=== PATIENT | female | born 1965 | race Caucasian/White ===

== ENCOUNTER → 2017-06-29 15:50 | Outpatient (CLI) | payer BC, SELFPAY ==
--- NOTE | 2017-06-29 15:56 | US_ITS ---
US transvaginal HISTORY: Dysfunctional uterine bleeding, heavy uterine bleeding ITS.REASON: Heavy Bleeding ORDERING PHYSICIAN: Vel Cormier MD PATIENT AGE: 51 years COMPARISON: None FINDINGS: UTERUS: The uterus measures 9.8 x 5 x 5.9 cm. Combined endometrial thickness is 1.2 cm. There is a 1 cm fibroid along the anterior aspect of the body the uterus RIGHT OVARY: 2.4 x 2 cm containing a 1.4 cm and a 1 cm cyst LEFT OVARY: 3.5 x 1.7 cm containing a 1.8 cm cyst CUL-DE-SAC FLUID: No cul-de-sac fluid apparent OTHER FINDINGS: None IMPRESSION: 1. Mildly thickened endometrium at 1.2 cm. 2. Small uterine fibroid. 3. Small bilateral ovarian cysts
== END ==
PROVIDERS: Family Provider Family Medicine; PCP Family Medicine; Visit Provider Nurse Practitioner Obstetrics & Gynecology
DX: N92.0 Excessive and frequent menstruation with regular cycle (principal)
CPT/HCPCS: 76830

== ENCOUNTER → 2017-07-07 11:08 | Outpatient (CLI) | payer BC, SELFPAY ==
[2017-07-07 13:14] LABS: Free Thyroxine Index 2.6 ug/dL (5.93-13.13); T4 (Thyroxine) 7.8 ug/dl (4.7-13.3); Thyroid Stimulating Hormone 0.92 uIU/ml (0.358-3.740); Triiodothryronine (T3) Uptake 33 % (31-39)
[2017-07-08 08:52] LABS: LH 8.2 mIU/mL (.)
== END ==
PROVIDERS: PCP Family Medicine; Visit Provider Nurse Practitioner Obstetrics & Gynecology
DX: N93.9 Abnormal uterine and vaginal bleeding, unspecified (principal)
CPT/HCPCS: 36415; 83001; 83002; 84436; 84443; 84479